=== PATIENT | male | born 1980 | race African-American/Black ===

== ENCOUNTER 2017-02-27 16:01 | Emergency (ER) | payer OTHER ==
[~2017-02-27] VITALS: Ht 182.9 cm; Wt 142.0 kg
[~2017-02-27 16:01] MED LIST: ACETAMINOPHEN-1 EAC1 PO; CLONAZEPAM 1 MG1 M1 PO; DESOWEN60 GM TP; DOXYCYCLINE 10100 MG PO; EFFEXOR XR37.5 MG PO; EFFEXOR XR75 MG PO; FLONASE 0.05%50 MCG NASAL; FLUOCINOLO0.01 %/15 TOP; FLUTICASONE PRO30 G1 TOP; HYDROCODON-ACE1 EAC7 PO; HYDROCODONE-AP1 EAC6 PO; IBUPROFEN 800800 M1 PO; IBUPROFEN 800800 MG PO; LEVAQUIN 500 M500 M2 PO; MINIPRESS2 MG PO; NAPROSYN500 MG PO; NIZORAL A-D200 ML TP; NOHOMEMEDICATIONS; NORCO 5-325 TA1 EAC1 PO; NORCO 5-325 TA1 EACH PO; ONDANSETRON HCL4 M2 PO; PREDNISONE 10 M10 MG PO; PREDNISONE 20 M20 M1 PO; PREDNISONE 20 M20 MG PO; PRILOSEC 20 MG20 MG PO; PROMETHAZINE-C120 ML PO; PROMS25 WY RECTAL; REGLAN 10 MG TA10 MG PO; ROBAXIN500 MG PO; SPIRIVA INH; VENTOLIN HFA 1818 GM INH; ZANTAC 150MG T150 MG PO; ZOLOFT50 MG PO; [UNRECOGNIZED DRUG - OTHER] TP
[2017-02-27] MEDS ORDERED: PROTONIX 20 MG20 M1 PO (16:18)
[2017-02-27 16:39] LABS: HEMATOCRIT 44.8 % (42.0-52.0); MCHC 33.6 g/dL (28.0-37.0); MCV 95.3 fL (80.0-100.0); MPV 9.4 fl. (7.2-11.1); NUCLEATED RBCS 0 /100WBC; PLATELET COUNT* 251 thou/uL (150-400); RDW-CV 13.1 % (10.5-14.5); WBC 10.8 thou/uL (4.0-11.0)
[2017-02-27 16:48] LABS: CALCIUM 8.5 mg/dL (8.5-10.1); CREATININE 1.3 mg/dL (0.6-1.3); POTASSIUM 4.3 mmol/L (3.5-5.1)
[2017-02-27 16:59] LABS: ALBUMIN 3.9 g/dL (3.4-5.0); TOTAL BILIRUBIN 0.6 mg/dL (<0.1-1.0); TOTAL PROTEIN 7.6 g/dL (6.4-8.2)
[2017-02-27 17:15] LABS: ABSOLUTE LYMPHOCYTES 0.6 thou/uL (0.8-5.3); ABSOLUTE MONOCYTES 0.9 thou/uL (0.0-1.2); ABSOLUTE NEUTROPHILS 9.3 thou/uL (1.6-8.1); PLATELET ESTIMATE ADEQUATE
[2017-02-27 17:54] LABS: URINE BILIRUBIN NEGATIVE (Negative); URINE BLOOD NEGATIVE (Negative); URINE CLARITY CLEAR; URINE COLOR YELLOW; URINE GLUCOSE-RANDOM NEGATIVE (Negative); URINE KETONES NEGATIVE (Negative); URINE LEUKOCYTES-REFLEX NEGATIVE (Negative); URINE NITRITE-REFLEX NEGATIVE (Negative); URINE PROTEIN NEGATIVE (Negative); URINE UROBILINOGEN 0.2 E.U./dl (0.2-1.0)
[2017-02-27] MEDS ORDERED: ZOFRAN ODT4 MG PO (18:29)
[2017-02-27] MEDS ORDERED: PROAIR HFA8.5 GM INH (18:31)
[2017-02-27 18:44] VITALS: BP 133/89
--- NOTE | 2017-02-28 13:10 | EKG ---
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 : 1980 Requested By: Fransisco Hinojosa Order Number: [id number] MD: Idris Diaz Measurements Intervals [place] Rate: 108 P: 7 NE: 167 QRS: 61 QRSD: 74 T: 24 QT: 300 QTc: 402 Interpretive Statements Sinus tachycardia Baseline wander in lead(s) V2 Compared to ECG 04/24/2014 21:51:39 Sinus rhythm no longer present Electronically Signed On 02-28-2017 13:10:14 [employer] by Idris Diaz [email or web address] <ELECTRONICALLY SIGNED> By: Idris Diaz MD, [facility] 02/28/17 1310 1629 Idris Diaz MD, FAC /EPI
== END 2017-02-27 18:45 | disposition home or self-care (01) ==
LOC: M.ERS 16:01
PROVIDERS: Physician Assistant
DX: K52.9 Noninfective gastroenteritis and colitis, unspecified (principal); J45.909 Unspecified asthma, uncomplicated; K21.9 Gastro-esophageal reflux disease without esophagitis; Z88.6 Allergy status to analgesic agent; F43.10 Post-traumatic stress disorder, unspecified

== ENCOUNTER 2017-08-10 22:32 | Emergency (ER) | payer OTHER ==
[~2017-08-10] VITALS: Ht 182.9 cm; Wt 134.7 kg
[~2017-08-10 22:32] MED LIST changes: +PROAIR HFA8.5 GM INH; +PROTONIX 20 MG20 M1 PO; +ZOFRAN ODT4 MG PO
[2017-08-10] MEDS ORDERED: ZOLOFT25 MG PO (22:44)
[2017-08-10] MEDS ORDERED: AZELASTINE137 MCG/0. NS (22:44)
[2017-08-10] MEDS ORDERED: DOXEPIN 10 MG C10 M1 PO (22:44)
[2017-08-10] MEDS ORDERED: MOBIC7.5 MG PO (22:45)
[2017-08-10] MEDS ORDERED: ENTOCORT EC 3 MG3 MG (22:45)
[2017-08-10] MEDS ORDERED: SINGULAIR 10 MG10 M1 PO (22:45)
[2017-08-10] MEDS ORDERED: HYDROCODONE-AP1 EAC6 PO (23:23)
[2017-08-10] MEDS ORDERED: IBUPROFEN 600600 M1 PO (23:23)
[2017-08-10 23:50] VITALS: BP 138/74
== END 2017-08-10 23:50 | disposition home or self-care (01) ==
LOC: M.ERS 22:32
DX: S46.201A Unspecified injury of muscle, fascia and tendon of other parts of biceps, right arm, initial encounter (principal); K21.9 Gastro-esophageal reflux disease without esophagitis; J45.909 Unspecified asthma, uncomplicated; F43.10 Post-traumatic stress disorder, unspecified; Z88.8 Allergy status to other drugs, medicaments and biological substances; X58.XXXA Exposure to other specified factors, initial encounter; Y93.89 Activity, other specified; Y92.89 Other specified places as the place of occurrence of the external cause; Y99.8 Other external cause status

== ENCOUNTER 2017-10-08 23:47 | Emergency (ER) | payer OTHER ==
[~2017-10-08] VITALS: Ht 182.9 cm; Wt 135.6 kg
[~2017-10-08 23:47] MED LIST changes: +AZELASTINE137 MCG/0. NS; +DOXEPIN 10 MG C10 M1 PO; +ENTOCORT EC 3 MG3 MG; +IBUPROFEN 600600 M1 PO; +MOBIC7.5 MG PO; +SINGULAIR 10 MG10 M1 PO; +ZOLOFT25 MG PO
[2017-10-09] MEDS ORDERED: ZANTAC 150MG T150 MG (00:12)
[2017-10-09] MEDS ORDERED: PROTONIX40 M1 (00:13)
[2017-10-09] MEDS ORDERED: MINIPRESS2 MG (00:14)
[2017-10-09 00:18] LABS: ABSOLUTE LYMPHOCYTES 3.1 thou/uL (0.8-5.3); ABSOLUTE NEUTROPHILS 6.3 thou/uL (1.6-8.1); BASOPHILS 0.4 %; EOSINOPHILS 0.3 %; HEMATOCRIT 48.5 % (42.0-52.0); HEMOGLOBIN 16.4 gm/dL (14.0-18.0); LYMPHOCYTES 29.5 %; MCH 32.6 pg (26.0-34.0); MCHC 33.8 g/dL (28.0-37.0); MCV 96.3 fL (80.0-100.0); MONOCYTES 9.3 %; MPV 8.9 fl. (7.2-11.1); NUCLEATED RBCS 0 /100WBC; PLATELET COUNT* 356 thou/uL (150-400); POLYS 60.5 %; RBC 5.03 mil/uL (4.50-6.00); RDW-CV 13.4 % (10.5-14.5); WBC 10.4 thou/uL (4.0-11.0)
[2017-10-09 00:33] LABS: CALCIUM 9.2 mg/dL (8.5-10.1); CREATININE 1.4 mg/dL (0.6-1.3); POTASSIUM 3.8 mmol/L (3.5-5.1)
[2017-10-09 00:38] LABS: TOTAL BILIRUBIN 0.6 mg/dL (<0.1-1.0)
[2017-10-09 00:39] LABS: ALBUMIN 4.8 g/dL (3.4-5.0); TOTAL PROTEIN 9.1 g/dL (6.4-8.2)
[2017-10-09 01:51] LABS: URINE BILIRUBIN NEGATIVE (Negative); URINE BLOOD 1+ (Negative); URINE CLARITY CLEAR; URINE COLOR YELLOW; URINE GLUCOSE-RANDOM NEGATIVE (Negative); URINE KETONES NEGATIVE (Negative); URINE LEUKOCYTES-REFLEX NEGATIVE (Negative); URINE NITRITE-REFLEX NEGATIVE (Negative); URINE PROTEIN NEGATIVE (Negative); URINE SPECIFIC GRAVITY <= 1.005 (1.005-1.030); URINE UROBILINOGEN 0.2 E.U./dl (0.2-1.0)
[2017-10-09 01:58] LABS: AMP/METHAMP Negative (Negative); BARBITURATES Negative (Negative); BENZODIAZEPINES Negative (Negative); COCAINE Negative (Negative); METHADONE Negative (Negative); OPIATES Negative (Negative); PCP Negative (Negative); THC POSITIVE (Negative)
[2017-10-09 02:06] LABS: BACTERIA-REFLEX 1-9 Few /HPF (None Seen); CASTS None Seen /LPF (None Seen); CRYSTALS None Seen /LPF (None Seen); MUCUS 0-3 Light strn/LPF (None Seen); SQUAMOUS 0-3 Few /LPF (0-3); URINE RBC 3-10 Few /HPF (0-2); URINE WBC-REFLEX None Seen /HPF (0-5)
[2017-10-09] MEDS ORDERED: ZOFRAN ODT4 MG PO (02:06)
[2017-10-09] MEDS ORDERED: NORCO 5-325 TA1 EACH PO (02:06)
[2017-10-09] MEDS ORDERED: PHENERGAN 25 MG25 MG PO (02:11)
[2017-10-09 02:27] VITALS: BP 122/63
== END 2017-10-09 02:29 | disposition home or self-care (01) ==
LOC: M.ERS 23:47
PROVIDERS: Nurse Practitioner Family
DX: K52.9 Noninfective gastroenteritis and colitis, unspecified (principal); K21.9 Gastro-esophageal reflux disease without esophagitis; J45.909 Unspecified asthma, uncomplicated; Z88.6 Allergy status to analgesic agent

== ENCOUNTER 2018-01-23 19:11 | Emergency (ER) | payer BC, OTHER ==
[~2018-01-23] VITALS: Ht 182.9 cm; Wt 129.3 kg
[~2018-01-23 19:11] MED LIST changes: +MINIPRESS2 MG; +PHENERGAN 25 MG25 MG PO; +PROTONIX40 M1; +ZANTAC 150MG T150 MG
[2018-01-23] MEDS ORDERED: VENLAFAXINE HC150 M1 (19:30)
[2018-01-23] MEDS ORDERED: CIPRODEX OTIC7.5 ML OTIC (20:09)
[2018-01-23 20:14] VITALS: BP 123/74
== END 2018-01-23 20:15 | disposition home or self-care (01) ==
LOC: M.ERS 19:11
DX: H60.92 Unspecified otitis externa, left ear (principal); J45.909 Unspecified asthma, uncomplicated; K21.9 Gastro-esophageal reflux disease without esophagitis; Z88.8 Allergy status to other drugs, medicaments and biological substances

== ENCOUNTER 2018-02-11 20:42 | Inpatient (IN) | payer OTHER, BC ==
[~2018-02-11] VITALS: Ht 182.9 cm; Wt 124.7 kg
--- NOTE | ~2018-02-11 | PROC ---
[address] [address] PROCEDURE REPORT Name: TAYLOR DAVIDOSN Room: [address] ADM IN M.R.#: [id number] Admission: 02/11/18 Attend Phys: Arely Dalton Discharge: Date of : 84 Report #: [id number] THIS REPORT FOR: //name// For GI report, please see the Provation report in Perceptive 7. By: 06Medical Records Staff [facility] /ELIJAH
[~2018-02-11 20:42] MED LIST changes: +CIPRODEX OTIC7.5 ML OTIC; +VENLAFAXINE HC150 M1
[2018-02-11 20:51] VITALS: BP 148/82
[2018-02-11] MEDS ORDERED: LIDOCAINE VISC100 ML (20:57)
[2018-02-11] MEDS ORDERED: ZOFRAN ODT4 MG DISSOLVE (20:57)
[2018-02-11 21:27] LABS: ABSOLUTE LYMPHOCYTES 1.8 thou/uL (0.8-5.3); ABSOLUTE MONOCYTES 0.8 thou/uL (0.0-1.2); ABSOLUTE NEUTROPHILS 7.8 thou/uL (1.6-8.1); BASOPHILS 0.4 %; EOSINOPHILS 0.3 %; HEMATOCRIT 45.4 % (42.0-52.0); HEMOGLOBIN 15.5 gm/dL (14.0-18.0); LYMPHOCYTES 17.3 %; MCH 32.8 pg (26.0-34.0); MCHC 34.2 g/dL (28.0-37.0); MCV 95.8 fL (80.0-100.0); MONOCYTES 7.4 %; MPV 9.8 fl. (7.2-11.1); NUCLEATED RBCS 0 /100WBC; PLATELET COUNT* 336 thou/uL (150-400); POLYS 74.6 %; RBC 4.74 mil/uL (4.50-6.00); RDW-CV 13.2 % (10.5-14.5); WBC 10.5 thou/uL (4.0-11.0)
[2018-02-11 21:39] LABS: ANION GAP 11 mmol/L (7-16); BUN 13 mg/dL (7-18); CHLORIDE 101 mmol/L (98-107); CO2 28 mmol/L (21-32); CREATININE 1.2 mg/dL (0.6-1.3); GLUCOSE 98 mg/dL (70-99); POTASSIUM 3.5 mmol/L (3.5-5.1); SODIUM 140 mmol/L (136-145)
[2018-02-11 21:46] LABS: ALBUMIN 4.2 g/dL (3.4-5.0); ALKALINE PHOSPHATASE 79 U/L (46-116); LIPASE 45 U/L (73-393); SGOT 16 U/L (15-37); SGPT 41 U/L (30-65); TOTAL BILIRUBIN 0.6 mg/dL (<0.1-1.0); TOTAL PROTEIN 8.2 g/dL (6.4-8.2); TROPONIN-I LEVEL <0.06 ng/mL (<0.06)
[2018-02-12 00:17] VITALS: BP 131/77
[2018-02-12 01:16] VITALS: BP 109/53
--- NOTE | 2018-02-12 02:06 | NUR ---
PATIENT IS ALERT AND ORIENTED VITAL SIGNS STABLE ON ROOM AIR. SOME PAIN THAT IS SOMEWHAT CONTROLLED WITH IV PAIN MEDICATIONS. ROOM ORIENTATION AND ASDMISSION ASSESSMENT DONE. QUESTIONS ANSWERED FOR PATIENT. CALL LIGHT IS IN REACH, WILL CONTINUE TO MONITOR.
--- NOTE | 2018-02-12 05:48 | NUR ---
PATIENT HAS BEEN ALERT AND OREIENTED SINCE COMING TO THE FLOOR FROM THE ER. SOME PAIN THAT IS SONEWHAT CONTROLLED BY IV PAIN MEDICATIONS, IS IN PAIN BUT HAS NO PAIN ORDERED. VITAL SIGNS STABLE ON ROOM AIR. PATIENT IS UP AD TOMAS IN ROOM, CALL LIGHT IS IN REACH, WILL CONTINUE TO MONITOR.
[2018-02-12 07:53] VITALS: BP 136/87
[2018-02-12 09:26] LABS: ABSOLUTE BASOPHILS 0.1 thou/uL (0.0-0.2); ABSOLUTE EOSINOPHILS 0.1 thou/uL (0.0-0.7); ABSOLUTE LYMPHOCYTES 2.4 thou/uL (0.8-5.3); ABSOLUTE MONOCYTES 0.8 thou/uL (0.0-1.2); ABSOLUTE NEUTROPHILS 4.3 thou/uL (1.6-8.1); BASOPHILS 0.7 %; EOSINOPHILS 1.1 %; HEMATOCRIT 42.4 % (42.0-52.0); HEMOGLOBIN 14.3 gm/dL (14.0-18.0); LYMPHOCYTES 31.7 %; MCH 32.6 pg (26.0-34.0); MCHC 33.7 g/dL (28.0-37.0); MCV 96.7 fL (80.0-100.0); MONOCYTES 10.8 %; MPV 9.4 fl. (7.2-11.1); NUCLEATED RBCS 0 /100WBC; PLATELET COUNT* 272 thou/uL (150-400); POLYS 55.7 %; RBC 4.39 mil/uL (4.50-6.00); RDW-CV 13.1 % (10.5-14.5); WBC 7.7 thou/uL (4.0-11.0)
[2018-02-12 09:28] LABS: CALCIUM 8.4 mg/dL (8.5-10.1); CREATININE 1.3 mg/dL (0.6-1.3); POTASSIUM 3.2 mmol/L (3.5-5.1)
--- NOTE | 2018-02-12 11:10 | EKG ---
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
--- NOTE | 2018-02-12 12:17 | NUR ---
SW met with pt to complete initial assessment, introduce self, and SW role. Pt alert, oriented. Pt Jany and recently Delores ph [phone]. Pt lives at home with and asked SW to discuss plans and communicate with pt as well. Pt not certain at this time if he will have any dc needs. SW called pt and discussed dc planning; pt was grateful for any messages and also requested any information about SSDI; SW to provide resources and continue to follow to assist with safe dc planning.
[2018-02-12 14:38] LABS: URINE BILIRUBIN NEGATIVE (Negative); URINE BLOOD 1+ (Negative); URINE CLARITY CLEAR; URINE COLOR DARK YELLOW; URINE GLUCOSE-RANDOM NEGATIVE (Negative); URINE KETONES NEGATIVE (Negative); URINE LEUKOCYTES-REFLEX NEGATIVE (Negative); URINE NITRITE-REFLEX NEGATIVE (Negative); URINE PROTEIN NEGATIVE (Negative); URINE SPECIFIC GRAVITY 1.025 (1.005-1.030); URINE UROBILINOGEN 0.2 E.U./dl (0.2-1.0)
[2018-02-12 15:18] LABS: SQUAMOUS 0-3 Few /LPF (0-3)
[2018-02-12 15:19] LABS: URINE RBC None Seen /HPF (0-2); URINE WBC-REFLEX 0-5 Rare /HPF (0-5)
[2018-02-12 15:20] LABS: BACTERIA-REFLEX None Seen /HPF (None Seen); CASTS None Seen /LPF (None Seen); CRYSTALS None Seen /LPF (None Seen); MUCUS None Seen strn/LPF (None Seen)
--- NOTE | 2018-02-12 16:59 | NUR ---
ASSESSMENT COMPLETE. PT ALERT AND ORIENTED X4. PT REPORTING PAIN AND N/V DURING THE DAY. PT GIVEN PRN PAIN AND NAUSEA MEDICATIONS. GI CONSULTED AND DID EGD WHICH WAS NORMAL. IV FLUIDS INFUSING, CIPRO AND FLAGYL GIVEN ORDERED. PT IS ON ROOM AIR WITH [place] SATS. HRR, PULSES 2/2 AND NO EDEMA NOTED. PT REPORTS LAST BM YESTERDAY. PT ON CLEAR LIQUID DIET, NOT TOLERATED AT BREAKFAST. PT IS UP AD TOMAS WITH STEADY GAIT. SEE ASSESSMENT AND VITALS FOR OTHER DETAILS. CALL LIGHT WITHIN REACH, WILL CONTINUE PLAN OF CARE
[2018-02-12 19:45] VITALS: BP 115/76
[2018-02-13 04:10] LABS: HEMATOCRIT 39.9 % (42.0-52.0); HEMOGLOBIN 13.7 gm/dL (14.0-18.0); MCH 33.2 pg (26.0-34.0); MCHC 34.3 g/dL (28.0-37.0); MCV 96.8 fL (80.0-100.0); RBC 4.13 mil/uL (4.50-6.00); WBC 6.3 thou/uL (4.0-11.0)
[2018-02-13 04:31] LABS: ALBUMIN 3.4 g/dL (3.4-5.0); CALCIUM 8.4 mg/dL (8.5-10.1); CREATININE 1.3 mg/dL (0.6-1.3); POTASSIUM 3.8 mmol/L (3.5-5.1); TOTAL BILIRUBIN 0.8 mg/dL (<0.1-1.0); TOTAL PROTEIN 6.4 g/dL (6.4-8.2)
--- NOTE | 2018-02-13 06:33 | NUR ---
PT SLEPT ON AND OFF THIS SHIFT. ASSESSMENT DOCUMENTED. MEDS GIVEN PER E-MAR. IV PATENT, FLUIDS INFUSING. PAIN MEDS GIVEN PER E-MAR WITH RELIEF. PT STATES HE WANTED IV PAIN MEDICATION THIS AM INSTEAD OF THE PO SINCE IT WORKS BETTER. PT REPORTS THAT HE STILL HAS ABDOMINAL PAIN AND NAUSEA AT TIMES. NAUSEA MEDS GIVEN PER E-MAR. WILL CONTINUE WITH PLAN OF CARE.
[2018-02-13 08:15] VITALS: BP 111/66
[2018-02-13 15:36] VITALS: BP 117/75
[2018-02-13 20:00] VITALS: BP 130/78
--- NOTE | 2018-02-13 20:10 | NUR ---
ASSESSMENT COMPLETE. PT ALERT AND ORIENTED X4. PT GIVEN IV PAIN AND NAUSEA MEDICATIONS NEEDED. IV FLUIDS INFUSING. ABD XRAY DONE TODAY. PT SAW PT AND SIGNED OFF. PT IS ON ROOM AIR, VITALS STABLE. TOLERATING LIQUID DIET. PT IS UP AD TOMAS WITH STEADY GAIT. SEE ASSESSMENT AND VITALS FOR OTHER DETAILS. CALL LIGHT WITHIN REACH. WILL CONTINUE PLAN OF CARE
--- NOTE | 2018-02-14 05:20 | NUR ---
PT SLEPT MOST OF SHIFT. ASSESSMENT DOCUMENTED. MEDS GIVEN PER E-MAR. IV PATENT, NEW IV STARTED, FLUIDS INFUSING. PAIN AND NAUSEA MEDS GIVEN PER E-MAR PER PATIENT REQUEST. PT STATES ORAL PAIN MEDICATIONS DO NOT WORK FOR HIM AND REQUESTED IV MEDS THIS SHIFT. WILL CONTINUE WITH PLAN OF CARE.
[2018-02-14 07:42] VITALS: BP 120/58
[2018-02-14 16:00] VITALS: BP 153/99
[2018-02-14 20:00] VITALS: BP 132/89
[2018-02-15 08:00] VITALS: BP 128/70
[2018-02-15] MEDS ORDERED: LIDOPATCH1 EACH TOP (10:44)
[2018-02-15] MEDS ORDERED: REGLAN 10 MG TA10 MG PO (10:44)
[2018-02-15] MEDS ORDERED: TRANSDERM-SCOP1 EACH TRANSDERM (10:44)
[2018-02-15] MEDS ORDERED: PROTONIX40 M1 PO (10:44)
[2018-02-15] MEDS ORDERED: CIPRO500 MG PO (10:44)
[2018-02-15 14:44] VITALS: BP 128/70
--- NOTE | 2018-02-15 15:05 | NUR ---
DISCHARGE NOTE - REVIEWED INSTRUCTIONS WITH PT. NO QUESTIONS. 5 RX'S GIVEN ALONG WITH EDUCATION MATERIAL. ALL BELONGINGS SENT WITH PT. IV REMOVED S DIFFICULTY.
--- NOTE | 2018-02-16 12:23 | CON ---
[address] [address] CONSULTATION Name: TAYLOR DAVIDSON Room: [address] IN M.R.#: [id number] Admission: 02/11/18 Attend Phys: Arely Dalton Discharge: 02/15/18 Date of : 84 Report #: [id number] THIS REPORT FOR: //name// CC: FRANCISCO JAVIER physician/PCP Amari Everett DATE OF SERVICE: 02/12/2018 HISTORY OF PRESENT ILLNESS: This is a pleasant 37-year-old male, with past medical history of gastroesophageal reflux disease, who is presenting for evaluation of nausea and vomiting for the last 2 days. The patient reports several episodes of nausea and vomiting. He reports he throws up whatever he consumes within 10-15 minutes. The patient denies seeing any hematemesis or hematochezia, and denies any diarrhea. The patient denies any weight loss or difficulty swallowing. PAST MEDICAL HISTORY: The patient has a history of gastroesophageal reflux disease, PTSD, asthma. PAST SURGICAL HISTORY: The patient had right knee surgery. SOCIAL HISTORY: The patient reports smoking marijuana intermittently, the last time he smoked was 3 months ago. The patient also reports intermittent alcohol use, but denies recreational drug use. FAMILY HISTORY: There is no family history of colorectal or gastric cancer. REVIEW OF SYSTEMS: A comprehensive 10-point review of systems negative except for what is mentioned in the HPI. PHYSICAL EXAMINATION: VITAL SIGNS: Temperature 36.6, pulse rate 71, respirations 16, blood pressure 109/53, pulse ox 97% on room air. GENERAL: The patient is alert, awake, oriented x 3. HEENT: Pupils are equal, round, reactive to light and accommodation. Mucous membranes are moist. NECK: There is no congestion. LUNGS: Clear to auscultation bilaterally. CARDIOVASCULAR: Rate and rhythm regular, S1, S2 present. ABDOMEN: Soft. There is no distention, guarding or rigidity. EXTREMITIES: Warm and well perfused. There is no edema. SKIN: Warm and dry. PLAN: The patient is a pleasant 37-year-old male, with past medical history significant for gastroesophageal reflux disease, presenting with nausea and vomiting for the last 2 days. The patient has been [place] [address] CONSULTATION Name: TAYLOR DAVIDSON Room: [address] IN [facility].#: [id number] Admission: 02/11/18 Attend Phys: Arely Dalton Discharge: 02/15/18 Date of : 84 Report #: [id number] he consumes over the period of last couple of days. We will proceed with EGD and further recommendations will be based on results of EGD. Thank you for this consult. GI will continue to follow. <ELECTRONICALLY SIGNED> By: Aj Covarrubias MD 02/16/18 1223 2304 MD misael Guevara
== END 2018-02-15 15:05 | disposition home or self-care (01) | DRG 372 ==
LOC: M.ERS 20:42 → M.TBA-ER 23:25 → M.3W 23:25
PROVIDERS: Internal Medicine; Personal Emergency Response Attendant; ADMIT Internal Medicine
PROC: 0DJ08ZZ Inspection of Upper Intestinal Tract, Via Natural or Artificial Opening Endoscopic (ICD-10-PCS; principal; 2018-02-12)
DX: A04.9 Bacterial intestinal infection, unspecified (principal); J98.11 Atelectasis; A08.4 Viral intestinal infection, unspecified; K21.9 Gastro-esophageal reflux disease without esophagitis; J45.909 Unspecified asthma, uncomplicated; F12.90 Cannabis use, unspecified, uncomplicated; G89.29 Other chronic pain; M54.9 Dorsalgia, unspecified; F43.10 Post-traumatic stress disorder, unspecified; Z88.8 Allergy status to other drugs, medicaments and biological substances; Z79.899 Other long term (current) drug therapy

== ENCOUNTER 2018-07-13 18:18 | Emergency (ER) | payer BC, OTHER ==
[~2018-07-13] VITALS: Ht 182.9 cm; Wt 128.4 kg
[~2018-07-13 18:18] MED LIST changes: +CIPRO500 MG PO; +LIDOCAINE VISC100 ML; +LIDOPATCH1 EACH TOP; +PROTONIX40 M1 PO; +TRANSDERM-SCOP1 EACH TRANSDERM; +ZOFRAN ODT4 MG DISSOLVE
[2018-07-13] MEDS ORDERED: HYDROXYZINE HCL25 M1 PO (18:29)
[2018-07-13 18:47] LABS: ABSOLUTE BASOPHILS 0.1 thou/uL (0.0-0.2); ABSOLUTE EOSINOPHILS 0.1 thou/uL (0.0-0.7); ABSOLUTE LYMPHOCYTES 1.6 thou/uL (0.8-5.3); ABSOLUTE MONOCYTES 1.1 thou/uL (0.0-1.2); ABSOLUTE NEUTROPHILS 5.6 thou/uL (1.6-8.1); BASOPHILS 0.8 %; EOSINOPHILS 1.7 %; HEMATOCRIT 46.5 % (42.0-52.0); HEMOGLOBIN 15.8 gm/dL (14.0-18.0); LYMPHOCYTES 18.4 %; MCH 31.9 pg (26.0-34.0); MCHC 33.9 g/dL (28.0-37.0); MCV 94.1 fL (80.0-100.0); MONOCYTES 12.7 %; MPV 9.3 fl. (7.2-11.1); NUCLEATED RBCS 0 /100WBC; PLATELET COUNT* 307 thou/uL (150-400); POLYS 66.4 %; RBC 4.94 mil/uL (4.50-6.00); RDW-CV 12.9 % (10.5-14.5); WBC 8.5 thou/uL (4.0-11.0)
[2018-07-13 18:59] LABS: APTT 35.9 Seconds (25.0-31.3); PROTIME 10.1 Seconds (9.20-11.50)
[2018-07-13 19:30] LABS: ANION GAP 11 mmol/L (7-16); BUN 16 mg/dL (7-18); CHLORIDE 102 mmol/L (98-107); CO2 27 mmol/L (21-32); POTASSIUM 3.9 mmol/L (3.5-5.1); SODIUM 140 mmol/L (136-145)
[2018-07-13 19:31] LABS: ALBUMIN 4.3 g/dL (3.4-5.0); ALKALINE PHOSPHATASE 87 U/L (46-116); CREATININE 1.3 mg/dL (0.6-1.3); GLUCOSE 107 mg/dL (70-99); LIPASE 36 U/L (73-393); SGOT 37 U/L (15-37); SGPT 72 U/L (30-65); TOTAL BILIRUBIN 0.4 mg/dL (<0.1-1.0); TOTAL PROTEIN 8.6 g/dL (6.4-8.2)
[2018-07-13 19:33] LABS: NT-PRO BRAIN NAT PEPTIDE 12 pg/mL (<300); TROPONIN-I LEVEL <0.06 ng/mL (<0.06)
[2018-07-13] MEDS ORDERED: PREDNISONE50 MG PO (20:05)
[2018-07-13] MEDS ORDERED: NORCO 5-325 TA1 EACH PO (20:05)
[2018-07-13 21:15] VITALS: BP 138/84
--- NOTE | 2018-07-16 12:31 | EKG ---
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
== END 2018-07-13 21:16 | disposition home or self-care (01) ==
LOC: M.ERS 18:18
PROVIDERS: Emergency Medicine Emergency Medical Services
DX: J45.909 Unspecified asthma, uncomplicated (principal); K21.9 Gastro-esophageal reflux disease without esophagitis; Z88.8 Allergy status to other drugs, medicaments and biological substances

== ENCOUNTER 2018-08-17 13:44 | Emergency (ER) | payer BC, OTHER ==
[~2018-08-17] VITALS: Ht 182.9 cm; Wt 124.7 kg
[~2018-08-17 13:44] MED LIST changes: +HYDROXYZINE HCL25 M1 PO; +PREDNISONE50 MG PO
[2018-08-17] MEDS ORDERED: SYMBICORT160 MCG/4. INH (13:51)
--- NOTE | 2018-08-17 14:14 | EKG ---
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 : 1980 Requested By: Bing Caldera Order Number: [id number] MD: Darien Santiago Measurements Intervals [place] Rate: 105 P: 36 MT: 169 QRS: 44 QRSD: 78 T: 31 QT: 321 QTc: 425 Interpretive Statements Sinus tachycardia Borderline low voltage, extremity leads Baseline wander in lead(s) V4,V5 Compared to ECG 07/13/2018 18:22:51 Sinus rhythm no longer present Electronically Signed On 08-17-2018 14:14:38 CDT by Darien Santiago [email or web address] <ELECTRONICALLY SIGNED> By: Darien Santiago MD, [facility] 08/17/18 1414 1349 48 Darien Santiago MD, [facility] /EPI
[2018-08-17 14:20] LABS: ABSOLUTE BASOPHILS 0.1 thou/uL (0.0-0.2); ABSOLUTE EOSINOPHILS 0.1 thou/uL (0.0-0.7); ABSOLUTE LYMPHOCYTES 2.1 thou/uL (0.8-5.3); ABSOLUTE MONOCYTES 0.7 thou/uL (0.0-1.2); ABSOLUTE NEUTROPHILS 3.9 thou/uL (1.6-8.1); BASOPHILS 0.9 %; EOSINOPHILS 1.2 %; HEMATOCRIT 44.7 % (42.0-52.0); HEMOGLOBIN 15.1 gm/dL (14.0-18.0); LYMPHOCYTES 30.8 %; MCH 31.9 pg (26.0-34.0); MCHC 33.7 g/dL (28.0-37.0); MCV 94.8 fL (80.0-100.0); MONOCYTES 9.6 %; MPV 9.3 fl. (7.2-11.1); NUCLEATED RBCS 0 /100WBC; PLATELET COUNT* 271 thou/uL (150-400); POLYS 57.5 %; RBC 4.72 mil/uL (4.50-6.00); RDW-CV 13.2 % (10.5-14.5); WBC 6.8 thou/uL (4.0-11.0)
[2018-08-17 14:33] LABS: ANION GAP 11 mmol/L (7-16); BUN 18 mg/dL (7-18); CALCIUM 8.8 mg/dL (8.5-10.1); CHLORIDE 103 mmol/L (98-107); CO2 27 mmol/L (21-32); CREATININE 1.3 mg/dL (0.6-1.3); GLUCOSE 112 mg/dL (70-99); POTASSIUM 3.8 mmol/L (3.5-5.1); SODIUM 141 mmol/L (136-145)
[2018-08-17 14:37] LABS: ALBUMIN 3.9 g/dL (3.4-5.0); ALKALINE PHOSPHATASE 82 U/L (46-116); MAGNESIUM 2.1 mg/dL (1.8-2.4); PHOSPHORUS* 2.6 mg/dL (2.5-4.9); SGOT 20 U/L (15-37); SGPT 46 U/L (30-65); TOTAL BILIRUBIN 0.3 mg/dL (<0.1-1.0); TOTAL PROTEIN 7.7 g/dL (6.4-8.2); TROPONIN-I LEVEL <0.06 ng/mL (<0.06)
[2018-08-17] MEDS ORDERED: PREDNISONE 20 M20 MG PO (16:31)
[2018-08-17] MEDS ORDERED: TESSALON PERLE100 M1 PO (16:31)
[2018-08-17 17:06] VITALS: BP 131/74
== END 2018-08-17 17:07 | disposition home or self-care (01) ==
LOC: M.ERS 13:44
PROVIDERS: Nurse Practitioner Family
DX: J70.5 Respiratory conditions due to smoke inhalation (principal); R05 Cough; R07.89 Other chest pain; R06.00 Dyspnea, unspecified; K21.9 Gastro-esophageal reflux disease without esophagitis; J45.909 Unspecified asthma, uncomplicated; Z88.6 Allergy status to analgesic agent

== ENCOUNTER 2018-12-03 18:35 | Emergency (ER) | payer BC, OTHER ==
[~2018-12-03] VITALS: Ht 182.9 cm; Wt 124.7 kg
[~2018-12-03 18:35] MED LIST changes: +SYMBICORT160 MCG/4. INH; +TESSALON PERLE100 M1 PO
[2018-12-03 19:04] LABS: URINE BILIRUBIN NEGATIVE (Negative); URINE BLOOD TRACE (Negative); URINE CLARITY CLEAR; URINE COLOR YELLOW; URINE GLUCOSE-RANDOM NEGATIVE (Negative); URINE KETONES NEGATIVE (Negative); URINE LEUKOCYTES-REFLEX NEGATIVE (Negative); URINE NITRITE-REFLEX NEGATIVE (Negative); URINE PROTEIN NEGATIVE (Negative); URINE SPECIFIC GRAVITY 1.015 (1.005-1.030); URINE UROBILINOGEN 0.2 E.U./dl (0.2-1.0)
[2018-12-03 19:13] LABS: ABSOLUTE BASOPHILS 0.1 thou/uL (0.0-0.2); ABSOLUTE LYMPHOCYTES 1.8 thou/uL (0.8-5.3); ABSOLUTE MONOCYTES 0.5 thou/uL (0.0-1.2); ABSOLUTE NEUTROPHILS 8.2 thou/uL (1.6-8.1); BASOPHILS 0.6 %; EOSINOPHILS 0.2 %; HEMATOCRIT 44.6 % (42.0-52.0); HEMOGLOBIN 15.4 gm/dL (14.0-18.0); LYMPHOCYTES 17.2 %; MCH 32.7 pg (26.0-34.0); MCHC 34.5 g/dL (28.0-37.0); MCV 94.8 fL (80.0-100.0); MONOCYTES 4.8 %; MPV 9.7 fl. (7.2-11.1); NUCLEATED RBCS 0 /100WBC; PLATELET COUNT* 277 thou/uL (150-400); POLYS 77.2 %; RBC 4.71 mil/uL (4.50-6.00); WBC 10.6 thou/uL (4.0-11.0)
[2018-12-03 19:18] LABS: CALCIUM 9.2 mg/dL (8.5-10.1); CREATININE 1.3 mg/dL (0.6-1.3); POTASSIUM 3.6 mmol/L (3.5-5.1)
[2018-12-03 19:22] LABS: ALBUMIN 4.1 g/dL (3.4-5.0); TOTAL BILIRUBIN 0.2 mg/dL (<0.1-1.0); TOTAL PROTEIN 7.9 g/dL (6.4-8.2)
[2018-12-03] MEDS ORDERED: IBUPROFEN 800800 M1 PO ×6 (20:22→20:37)
[2018-12-03] MEDS ORDERED: ONDANSETRON HCL4 M2 PO ×6 (20:22→20:37)
[2018-12-03] MEDS ORDERED: ZANAFLEX4 MG PO ×8 (20:22→20:37)
[2018-12-03] MEDS ORDERED: NORCO 5-325 TA1 EAC1 PO (20:22)
[2018-12-03 21:01] VITALS: BP 149/91
== END 2018-12-03 21:02 | disposition home or self-care (01) ==
LOC: M.ERS 18:35
PROVIDERS: Nurse Practitioner Family
DX: N44.2 Benign cyst of testis (principal); M54.5 Low back pain; J45.909 Unspecified asthma, uncomplicated; K21.9 Gastro-esophageal reflux disease without esophagitis; Z88.6 Allergy status to analgesic agent

== ENCOUNTER 2019-07-16 08:59 | Inpatient (IN) | payer BC, OTHER ==
[~2019-07-16] VITALS: Ht 182.9 cm; Wt 144.2 kg
[~2019-07-16 08:59] MED LIST changes: -HYDROXYZINE HCL25 M1 PO; +HYDROXYZINE HCL25 M2 PO; -MINIPRESS2 MG; -VENLAFAXINE HC150 M1; +VENLAFAXINE HC150 M1 PO; +ZANAFLEX4 MG PO
[2019-07-16 09:07] VITALS: BP 143/89
[2019-07-16 09:41] LABS: BASOPHILS 0.4 %; EOSINOPHILS 0.3 %; NUCLEATED RBCS 0 /100WBC; RDW-CV 12.9 % (10.5-14.5)
[2019-07-16 09:44] LABS: ABSOLUTE MONOCYTES 0.5 thou/uL (0.0-1.2); ABSOLUTE NEUTROPHILS 9.1 thou/uL (1.6-8.1); HEMATOCRIT 42.8 % (42.0-52.0); HEMOGLOBIN 15.4 gm/dL (14.0-18.0); LYMPHOCYTES 9.2 %; MCH 33.9 pg (26.0-34.0); MCHC 35.9 g/dL (28.0-37.0); MCV 94.3 fL (80.0-100.0); MONOCYTES 4.5 %; MPV 9.6 fl. (7.2-11.1); PLATELET COUNT* 279 thou/uL (150-400); POLYS 85.6 %; RBC 4.54 mil/uL (4.50-6.00); WBC 10.6 thou/uL (4.0-11.0)
[2019-07-16 09:54] LABS: CALCIUM 8.4 mg/dL (8.5-10.1); CREATININE 1.2 mg/dL (0.6-1.3)
[2019-07-16 09:58] LABS: ALBUMIN 3.9 g/dL (3.4-5.0); TOTAL BILIRUBIN 0.2 mg/dL (<0.1-1.0); TOTAL PROTEIN 7.5 g/dL (6.4-8.2)
[2019-07-16 10:04] LABS: URINE BILIRUBIN NEGATIVE (Negative); URINE BLOOD NEGATIVE (Negative); URINE CLARITY CLEAR; URINE COLOR YELLOW; URINE GLUCOSE-RANDOM NEGATIVE (Negative); URINE KETONES NEGATIVE (Negative); URINE LEUKOCYTES-REFLEX NEGATIVE (Negative); URINE NITRITE-REFLEX NEGATIVE (Negative); URINE PROTEIN NEGATIVE (Negative); URINE SPECIFIC GRAVITY >= 1.030 (1.005-1.030); URINE UROBILINOGEN 0.2 E.U./dl (0.2-1.0)
[2019-07-16 10:11] LABS: AMP/METHAMP Negative (Negative); BARBITURATES Negative (Negative); BENZODIAZEPINES Negative (Negative); COCAINE Negative (Negative); METHADONE Negative (Negative); OPIATES Negative (Negative); PCP Negative (Negative); THC POSITIVE (Negative)
[2019-07-16 16:00] VITALS: BP 167/98
[2019-07-16 20:15] VITALS: BP 138/70
[2019-07-17 03:28] LABS: HEMATOCRIT 42.2 % (42.0-52.0); HEMOGLOBIN 14.6 gm/dL (14.0-18.0); MCH 32.6 pg (26.0-34.0); MCHC 34.7 g/dL (28.0-37.0); MCV 94.1 fL (80.0-100.0); RBC 4.48 mil/uL (4.50-6.00); RDW-CV 12.5 % (10.5-14.5); WBC 11.7 thou/uL (4.0-11.0)
[2019-07-17 03:42] LABS: CALCIUM 8.6 mg/dL (8.5-10.1); MAGNESIUM 2.2 mg/dL (1.8-2.4); PHOSPHORUS* 2.6 mg/dL (2.5-4.9); POTASSIUM 3.5 mmol/L (3.5-5.1)
[2019-07-17 08:00] VITALS: BP 141/92
[2019-07-17 20:30] VITALS: BP 157/81
[2019-07-18 04:04] LABS: CALCIUM 8.8 mg/dL (8.5-10.1); CREATININE 1.2 mg/dL (0.6-1.3); MAGNESIUM 1.9 mg/dL (1.8-2.4); POTASSIUM 3.6 mmol/L (3.5-5.1)
[2019-07-18 04:16] LABS: ABSOLUTE EOSINOPHILS 0.1 thou/uL (0.0-0.7); ABSOLUTE LYMPHOCYTES 3.2 thou/uL (0.8-5.3); ABSOLUTE NEUTROPHILS 5.1 thou/uL (1.6-8.1); BASOPHILS 0.5 %; EOSINOPHILS 1.1 %; HEMATOCRIT 42.7 % (42.0-52.0); HEMOGLOBIN 15.1 gm/dL (14.0-18.0); LYMPHOCYTES 33.6 %; MCH 33.3 pg (26.0-34.0); MCHC 35.4 g/dL (28.0-37.0); MCV 94.1 fL (80.0-100.0); MONOCYTES 10.1 %; NUCLEATED RBCS 0 /100WBC; PLATELET COUNT* 270 thou/uL (150-400); POLYS 54.7 %; RBC 4.54 mil/uL (4.50-6.00); RDW-CV 12.7 % (10.5-14.5); WBC 9.4 thou/uL (4.0-11.0)
[2019-07-18 08:00] VITALS: BP 139/93
[2019-07-18 14:32] VITALS: BP 139/93
[2019-07-18 15:50] VITALS: BP 145/63
[2019-07-18] MEDS ORDERED: PROAIR HFA8.5 GM INH (17:25)
[2019-07-18 20:00] VITALS: BP 119/64
[2019-07-19 08:45] VITALS: BP 107/47
[2019-07-19 10:06] LABS: CALCIUM 8.8 mg/dL (8.5-10.1); CREATININE 1.3 mg/dL (0.6-1.3); MAGNESIUM 1.9 mg/dL (1.8-2.4); PHOSPHORUS* 2.3 mg/dL (2.5-4.9); POTASSIUM 3.5 mmol/L (3.5-5.1)
[2019-07-19 10:15] VITALS: BP 139/93
== END 2019-07-19 10:45 | disposition home or self-care (01) | DRG 389 ==
LOC: M.ERS 08:59 → M.TBA-ER 13:18 → M.ORTHSURG 13:18
PROVIDERS: Personal Emergency Response Attendant; Surgery; ADMIT Internal Medicine
DX: K56.609 Unspecified intestinal obstruction, unspecified as to partial versus complete obstruction (principal); Z68.41 Body mass index [BMI] 40.0-44.9, adult; J45.909 Unspecified asthma, uncomplicated; K21.9 Gastro-esophageal reflux disease without esophagitis; E66.01 Morbid (severe) obesity due to excess calories; Z88.8 Allergy status to other drugs, medicaments and biological substances; F43.10 Post-traumatic stress disorder, unspecified; Z90.49 Acquired absence of other specified parts of digestive tract; X58.XXXA Exposure to other specified factors, initial encounter; G89.29 Other chronic pain; Y93.89 Activity, other specified; Y92.89 Other specified places as the place of occurrence of the external cause; Y99.8 Other external cause status

== ENCOUNTER 2020-05-19 10:33 | Emergency (ER) | payer OTHER ==
[~2020-05-19] VITALS: Ht 182.9 cm; Wt 129.3 kg
[2020-05-19 10:50] LABS: ABSOLUTE EOSINOPHILS 0.1 thou/uL (0.0-0.7); ABSOLUTE LYMPHOCYTES 1.9 thou/uL (0.8-5.3); ABSOLUTE MONOCYTES 0.6 thou/uL (0.0-1.2); ABSOLUTE NEUTROPHILS 3.6 thou/uL (1.6-8.1); BASOPHILS 0.7 %; EOSINOPHILS 1.1 %; HEMATOCRIT 46.7 % (42.0-52.0); HEMOGLOBIN 15.8 gm/dL (14.0-18.0); LYMPHOCYTES 30.9 %; MCH 32.1 pg (26.0-34.0); MCHC 33.8 g/dL (28.0-37.0); MONOCYTES 9.9 %; MPV 8.9 fl. (7.2-11.1); NUCLEATED RBCS 0 /100WBC; PLATELET COUNT* 277 thou/uL (150-400); POLYS 57.4 %; RBC 4.92 mil/uL (4.50-6.00); RDW-CV 12.9 % (10.5-14.5); WBC 6.2 thou/uL (4.0-11.0)
[2020-05-19 10:59] LABS: ANION GAP 6 mmol/L (7-16); BUN 15 mg/dL (7-18); CALCIUM 8.9 mg/dL (8.5-10.1); CHLORIDE 105 mmol/L (98-107); CO2 30 mmol/L (21-32); CREATININE 1.4 mg/dL (0.6-1.3); GLUCOSE 106 mg/dL (70-99); POTASSIUM 3.8 mmol/L (3.5-5.1); SODIUM 141 mmol/L (136-145)
[2020-05-19 11:01] LABS: APTT 32.9 Seconds (25.0-31.3); PROTIME 10.2 Seconds (9.20-11.50)
[2020-05-19 11:13] LABS: ALBUMIN 4.1 g/dL (3.4-5.0); ALKALINE PHOSPHATASE 79 U/L (46-116); CK-MB MASS < 0.5 ng/mL (<0.5-3.6); LIPASE 94 U/L (73-393); MAGNESIUM 2.3 mg/dL (1.8-2.4); NT-PRO BRAIN NAT PEPTIDE 7 pg/mL (<300); SGOT 19 U/L (15-37); SGPT 34 U/L (30-65); TOTAL BILIRUBIN 0.3 mg/dL (<0.1-1.0); TOTAL PROTEIN 8.1 g/dL (6.4-8.2)
[2020-05-19] MEDS ORDERED: FLEXERIL PO (11:45)
[2020-05-19] MEDS ORDERED: HYDROCODON-ACE1 EAC7 PO (11:45)
[2020-05-19] MEDS ORDERED: ZOFRAN ODT4 MG SUBLING (11:45)
[2020-05-19 12:00] VITALS: BP 148/97
--- NOTE | 2020-05-20 10:05 | EKG ---
[place] [address] ELECTROCARDIOGRAM REPORT Name: TAYLOR DAVIDSON Room: [facility]#: [id number] Admission: 05/19/20 Attend Phys: Discharge: 05/19/20 Date of : 84 Date of Service: 05/19/20 1036 Report #: [id number] THIS REPORT FOR: //name// [facility] ED Test Date: 2020-05-19 Test Time: 10:36:40 Pat Name: TAYLOR DAVIDSON Department: Room: Gender: Clinical Staff Pharmacist: [facility] : 1980 Requested By: Noé Christensen Order Number: [id number] MD: Rehan Swartz Measurements Intervals [place] Rate: 88 P: 35 [place]: 187 QRS: 52 QRSD: 80 T: 37 QT: 335 QTc: 406 Interpretive Statements Sinus rhythm Compared to ECG 08/17/2018 13:49:22 Sinus tachycardia no longer present Electronically Signed On 05-20-2020 10:05:16 CDT by Rehan Swartz [email or web address] <ELECTRONICALLY SIGNED> By: Rehan Swartz MD, [facility] 05/20/20 1005 1036 103 Rehan Swartz MD, FAC /EPI
== END 2020-05-19 12:02 | disposition home or self-care (01) ==
LOC: M.ERS 10:33
PROVIDERS: Family Medicine
DX: R07.89 Other chest pain (principal); M25.512 Pain in left shoulder; R51.9 Headache, unspecified; R11.0 Nausea; J45.909 Unspecified asthma, uncomplicated; K21.9 Gastro-esophageal reflux disease without esophagitis; Z98.890 Other specified postprocedural states; Z79.899 Other long term (current) drug therapy; Z88.8 Allergy status to other drugs, medicaments and biological substances; X50.0XXA Overexertion from strenuous movement or load, initial encounter; Y93.89 Activity, other specified; Y92.89 Other specified places as the place of occurrence of the external cause; Y99.8 Other external cause status

== ENCOUNTER 2020-09-23 19:53 | Emergency (ER) | payer OTHER ==
[~2020-09-23] VITALS: Ht 182.9 cm; Wt 170.1 kg
[~2020-09-23 19:53] MED LIST changes: +FLEXERIL PO; +ZOFRAN ODT4 MG SUBLING
[2020-09-23] MEDS ORDERED: PEPCID20 MG PO (20:08)
[2020-09-23] MEDS ORDERED: KLONOPIN0.5 MG PO (20:08)
[2020-09-23 20:36] LABS: ABSOLUTE BASOPHILS 0.1 thou/uL (0.0-0.2); ABSOLUTE LYMPHOCYTES 2.1 thou/uL (0.8-5.3); ABSOLUTE MONOCYTES 0.8 thou/uL (0.0-1.2); ABSOLUTE NEUTROPHILS 5.8 thou/uL (1.6-8.1); BASOPHILS 0.6 %; EOSINOPHILS 0.4 %; HEMATOCRIT 42.5 % (42.0-52.0); HEMOGLOBIN 14.9 gm/dL (14.0-18.0); LYMPHOCYTES 23.6 %; MCH 33.3 pg (26.0-34.0); MCV 95.1 fL (80.0-100.0); MONOCYTES 9.3 %; MPV 9.4 fl. (7.2-11.1); NUCLEATED RBCS 0 /100WBC; PLATELET COUNT* 281 thou/uL (150-400); POLYS 66.1 %; RBC 4.47 mil/uL (4.50-6.00); WBC 8.8 thou/uL (4.0-11.0)
[2020-09-23 20:45] LABS: CALCIUM 8.6 mg/dL (8.5-10.1); CREATININE 1.6 mg/dL (0.6-1.3)
[2020-09-23 20:56] LABS: ALBUMIN 4.1 g/dL (3.4-5.0); MAGNESIUM 2.2 mg/dL (1.8-2.4); TOTAL BILIRUBIN 0.2 mg/dL (<0.1-1.0); TOTAL PROTEIN 7.6 g/dL (6.4-8.2)
[2020-09-23] MEDS ORDERED: FLEXERIL PO (21:46)
[2020-09-23] MEDS ORDERED: HYDROCODON-ACE1 EAC8 PO (21:46)
[2020-09-23 22:11] VITALS: BP 113/80
--- NOTE | 2020-09-24 12:59 | EKG ---
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
== END 2020-09-23 22:13 | disposition home or self-care (01) ==
LOC: M.ERS 19:53
PROVIDERS: Emergency Medicine
DX: R07.89 Other chest pain (principal); Z20.822 Contact with and (suspected) exposure to COVID-19; R22.2 Localized swelling, mass and lump, trunk; R06.02 Shortness of breath; R00.2 Palpitations; J45.909 Unspecified asthma, uncomplicated; K21.9 Gastro-esophageal reflux disease without esophagitis; Z88.1 Allergy status to other antibiotic agents

== ENCOUNTER 2021-02-01 15:38 | Emergency (ER) | payer BC, OTHER ==
[~2021-02-01] VITALS: Ht 182.9 cm; Wt 126.1 kg
[~2021-02-01 15:38] MED LIST changes: +HYDROCODON-ACE1 EAC8 PO; +KLONOPIN0.5 MG PO; +MINIPRESS5 MG PO; +PEPCID20 MG PO
[2021-02-01] MEDS ORDERED: QUETIAPINE FUM200 M1 PO (16:15)
[2021-02-01] MEDS ORDERED: VIAGRA100 MG PO (16:16)
[2021-02-01 18:27] LABS: HEMATOCRIT 45.3 % (42.0-52.0); HEMOGLOBIN 15.5 gm/dL (14.0-18.0); MCH 32.3 pg (26.0-34.0); MCHC 34.3 g/dL (28.0-37.0); MCV 94.1 fL (80.0-100.0); MPV 9.2 fl. (7.2-11.1); RBC 4.81 mil/uL (4.50-6.00); RDW-CV 13.1 % (10.5-14.5); WBC 7.8 thou/uL (4.0-11.0)
[2021-02-01 18:37] LABS: URINE BILIRUBIN NEGATIVE (Negative); URINE BLOOD TRACE (Negative); URINE CLARITY CLEAR; URINE COLOR YELLOW; URINE GLUCOSE-RANDOM NEGATIVE (Negative); URINE KETONES NEGATIVE (Negative); URINE LEUKOCYTES-REFLEX NEGATIVE (Negative); URINE NITRITE-REFLEX NEGATIVE (Negative); URINE PROTEIN NEGATIVE (Negative); URINE SPECIFIC GRAVITY >= 1.030 (1.005-1.030); URINE UROBILINOGEN 0.2 E.U./dl (0.2-1.0)
[2021-02-01 18:45] LABS: CALCIUM 8.9 mg/dL (8.5-10.1); CREATININE 1.1 mg/dL (0.6-1.3); POTASSIUM 4.2 mmol/L (3.5-5.1)
[2021-02-01] MEDS ORDERED: ONDANSETRON ODT4 MG PO (20:10)
[2021-02-01] MEDS ORDERED: APAP W/CODEINE1 TA2 PO (20:10)
[2021-02-01] MEDS ORDERED: LOPERAMIDE 2 MG2 M1 PO (20:10)
[2021-02-01 20:29] VITALS: BP 140/77
[2021-02-01] MEDS ORDERED: DOXYCYCLINE 10100 MG PO (21:20)
== END 2021-02-01 20:31 | disposition home or self-care (01) ==
LOC: M.ERS 15:38
PROVIDERS: Physician Assistant
DX: R10.32 Left lower quadrant pain (principal); Z20.822 Contact with and (suspected) exposure to COVID-19; J45.909 Unspecified asthma, uncomplicated; K21.9 Gastro-esophageal reflux disease without esophagitis; Z79.899 Other long term (current) drug therapy; Z88.5 Allergy status to narcotic agent

== ENCOUNTER 2021-02-22 12:59 | Emergency (ER) | payer OTHER, BC ==
[~2021-02-22] VITALS: Ht 182.9 cm; Wt 124.7 kg
[~2021-02-22 12:59] MED LIST changes: +APAP W/CODEINE1 TA2 PO; +LOPERAMIDE 2 MG2 M1 PO; +ONDANSETRON ODT4 MG PO; +QUETIAPINE FUM200 M1 PO; +VIAGRA100 MG PO
[2021-02-22 20:48] LABS: URINE BILIRUBIN NEGATIVE (Negative); URINE BLOOD NEGATIVE (Negative); URINE CLARITY CLEAR; URINE COLOR YELLOW; URINE GLUCOSE-RANDOM NEGATIVE (Negative); URINE KETONES NEGATIVE (Negative); URINE LEUKOCYTES-REFLEX NEGATIVE (Negative); URINE NITRITE-REFLEX NEGATIVE (Negative); URINE PROTEIN NEGATIVE (Negative); URINE SPECIFIC GRAVITY >= 1.030 (1.005-1.030); URINE UROBILINOGEN 0.2 E.U./dl (0.2-1.0)
[2021-02-22 20:49] LABS: ABSOLUTE EOSINOPHILS 0.1 thou/uL (0.0-0.7); ABSOLUTE LYMPHOCYTES 2.5 thou/uL (0.8-5.3); ABSOLUTE MONOCYTES 0.7 thou/uL (0.0-1.2); ABSOLUTE NEUTROPHILS 5.4 thou/uL (1.6-8.1); BASOPHILS 0.6 %; EOSINOPHILS 0.8 %; HEMATOCRIT 42.3 % (42.0-52.0); HEMOGLOBIN 14.9 gm/dL (14.0-18.0); LYMPHOCYTES 28.8 %; MCH 33.2 pg (26.0-34.0); MCHC 35.2 g/dL (28.0-37.0); MCV 94.4 fL (80.0-100.0); MONOCYTES 7.7 %; NUCLEATED RBCS 0 /100WBC; PLATELET COUNT* 268 thou/uL (150-400); POLYS 62.1 %; RBC 4.48 mil/uL (4.50-6.00); WBC 8.6 thou/uL (4.0-11.0)
[2021-02-22 20:50] LABS: INFLUENZA A ANTIGEN Negative (Negative); INFLUENZA B ANTIGEN Negative (Negative)
[2021-02-22 20:57] LABS: CALCIUM 8.4 mg/dL (8.5-10.1); CREATININE 1.3 mg/dL (0.6-1.3); POTASSIUM 3.7 mmol/L (3.5-5.1)
[2021-02-22 21:01] LABS: ALBUMIN 3.7 g/dL (3.4-5.0); TOTAL BILIRUBIN 0.5 mg/dL (<0.1-1.0); TOTAL PROTEIN 7.4 g/dL (6.4-8.2)
[2021-02-22] MEDS ORDERED: ZOFRAN ODT4 MG PO (22:20)
[2021-02-22] MEDS ORDERED: PROAIR HFA8.5 GM INH (22:20)
[2021-02-22] MEDS ORDERED: APAP W/CODEINE1 TA2 PO (22:20)
[2021-02-22] MEDS ORDERED: PREDNISONE50 MG PO (22:20)
[2021-02-22 22:45] VITALS: BP 144/88
== END 2021-02-22 22:45 | disposition home or self-care (01) ==
LOC: M.ERS 12:59
PROVIDERS: Emergency Medicine
DX: R05.9 Cough, unspecified (principal); Z20.822 Contact with and (suspected) exposure to COVID-19; R19.7 Diarrhea, unspecified; R07.89 Other chest pain; J45.909 Unspecified asthma, uncomplicated; K21.9 Gastro-esophageal reflux disease without esophagitis; Z79.899 Other long term (current) drug therapy; Z88.8 Allergy status to other drugs, medicaments and biological substances